=== PATIENT | female | born 1955 | race Caucasian/White ===

== ENCOUNTER 2020-10-21 08:00 | Outpatient (CLI) | payer MEDICARE ==
--- NOTE | 2020-10-22 08:25 | XRAY Report ---
PROCEDURE: Ankle 3 View LT INDICATIONS: LEFT ANKLE PAIN TECHNIQUE: 3 views of the ankle were acquired. COMPARISON: None. FINDINGS: Bones: There is a nondisplaced oblique fracture of the lateral malleolus extending to the ankle morti se. Ankle mortise is normally aligned. No suspicious bony lesions. Soft tissues: Soft tissue swelling over the lateral malleolus. Small tibiotalar joint effusion. Ach illes tendon appears normal. IMPRESSION: A nondisplaced fracture of the lateral malleolus. Reviewed by: Link John MD on 10/22/2020 8:23 AM PDT Approved by: Link John MD on 10/22/2020 8:23 AM PDT Station ID: [id number]
== END 2020-10-21 23:59 | disposition home or self-care (01) ==
LOC: DI.S 08:00
PROVIDERS: ATTEND Emergency Medicine
DX: S93.412A Sprain of calcaneofibular ligament of left ankle, initial encounter (principal); S82.65XA Nondisplaced fracture of lateral malleolus of left fibula, initial encounter for closed fracture

== ENCOUNTER 2022-03-16 08:00 | Outpatient (CLI) | payer MEDICARE ==
[2022-03-17 00:17] LABS: INFLUENZA A- RESP PCR PANEL NOT DETECTED; INFLUENZA B - RESP PCR PANEL NOT DETECTED; RSV- RESP PCR PANEL NOT DETECTED; SARS-CoV-2 -RESP PCR PANEL DETECTED
== END 2022-03-16 23:59 | disposition home or self-care (01) ==
LOC: LAB.S 08:00
PROVIDERS: ATTEND Physician Assistant Medical
DX: U07.1 COVID-19 (principal)
CPT/HCPCS: 87637